=== PATIENT | male | born 1960 | race African-American/Black ===

== ENCOUNTER 2019-04-14 12:27 | Inpatient (IN) | payer OTHER ==
[~2019-04-14] VITALS: Ht 160 cm; Wt 63.0 kg
[2019-04-14] MEDS ORDERED: MORPHINE SULFATE 4 MG/ML SYR/VIAL IV ONE (12:45)
[2019-04-14] MEDS ORDERED: ONDANSETRON HCL 4 MG/2 ML VIAL IV ONE (12:45)
[2019-04-14 13:50] LABS: Basophils # (auto) 0 uL; Basophils % (auto) 0.8 % (0.0-2.0); Eosinophils # (auto) 0.1 uL; Eosinophils % (auto) 2.9 % (0.0-7.0); Hematocrit 45.7 % (41.0-53.0); Hemoglobin 14.2 g/dL (13.5-17.5); Lymphocytes # (auto) 1.2 uL; Lymphocytes % (auto) 29.4 % (10.0-50.0); Mean Corpuscular Hemoglobin 27.5 pg (28.0-32.0); Mean Corpuscular Hgb Conc. 31.1 g/dL (32.0-36.0); Mean Corpuscular Volume 88.5 fL (80.0-100.0); Monocytes # (auto) 0.4 uL; Monocytes % (auto) 10.4 % (0.0-12.0); Neutrophils # (auto) 2.2 uL; Neutrophils % (auto) 56.5 % (37.0-80.0); Nucleated Red Blood Cells % 0.2 %; Platelet Count (auto) 201 10^3/uL (140-450); Red Blood Cells 5.16 10^6/uL (4.5-5.90); Red Cell Distribution Width 14.4 % (11.8-14.3)
[2019-04-14 14:22] LABS: Potassium 4.4 mmol/L (3.5-5.1); Sodium 139 mmol/L (136-145)
[2019-04-14 14:23] LABS: Alanine Aminotransferase 15 U/L (16-61); Albumin 3.3 g/dL (3.4-5.0); Alkaline Phosphatase 63 U/L (45-117); Anion Gap 5 (5-15); Aspartate Aminotransferase 11 U/L (15-37); BUN/Creatinine Ratio 17.1; Bilirubin, Total 0.3 mg/dL (0.2-1.0); Blood Urea Nitrogen 18 mg/dL (7-18); Calcium 8.8 mg/dL (8.5-10.1); Carbon Dioxide 24 mmol/L (21-32); Chloride 110 mmol/L (98-107); GFR African American 93 mL/min; GFR Non-African American 77 mL/min; Glucose 75 mg/dL (74-106)
[2019-04-14] MEDS ORDERED: NITROGLYCERIN 0.4 MG SL TAB SL PRN (16:15)
[2019-04-14] MEDS ORDERED: MORPHINE SULF INJ 2 MG/ML SYRINGE 1ML IV PRN (16:15)
[2019-04-14] MEDS ORDERED: DEXTROSE (50%) 50ML SYRG IV PRN (16:15)
[2019-04-14] MEDS: ACCU-CHEK COMFORT CURVE STRIP VI SCH ×2 (17:50→22:00)
[2019-04-14] MEDS: InsuLIN REG 1unit/0.01ml Soln (100units/ml) SC SCH ×2 (17:55→22:00)
--- NOTE | 2019-04-14 20:10 | NUR ---
Telemetry admit from ER EULOGIO JONES admitted to Telemetry unit after NO SBAR WAS received. Patient oriented to JOSÉ MIGUEL troncoso RN, unit, room, bed, and unit policies regarding patient care and visiting hours. Patient now on continuous telemetry monitoring, tele box # 70 and telemetry reading on arrival to unit is sinus rhythm at 81 bpm. Patient is A/Ox4, skin intact, on RA, ambulatory. Call light is within reach, side rails up x2, bed is in lowest position, side rails up x2, guards are at bedside for safety. Patient weighed by bedscale and encouraged to call if they need something. All questions and concerns addressed, patient verbalized understanding.
[2019-04-14 22:00] VITALS: BP 145/91
--- NOTE | 2019-04-14 22:00 | NUR ---
Patient refused 2200 blood sugar check stating "I am not diabetic. Someone messed up somewhere."
[2019-04-14] MEDS: CARVEDILOL 3.125 MG TAB PO SCH (22:14)
[2019-04-14] MEDS: traMADol HCL 50 MG TAB PO PRN (22:14)
--- NOTE | 2019-04-14 22:30 | NUR ---
MRSA Nares collected and sent to lab via bullet system.
[2019-04-14] MEDS ORDERED: ASPI-404 PO (23:48)
--- NOTE | 2019-04-15 00:48 | NUR ---
Patient now on tele box#8.
[2019-04-15 05:00] VITALS: BP 158/96
[2019-04-15] MEDS: InsuLIN REG 1unit/0.01ml Soln (100units/ml) SC SCH ×4 (06:21→21:35)
[2019-04-15] MEDS: ACCU-CHEK COMFORT CURVE STRIP VI SCH ×4 (06:21→21:35)
--- NOTE | 2019-04-15 08:30 | NUR ---
REFUSAL OF ASSESSMENT PATIENT RESFUSED PHYSICAL ASSESSMENT.
[2019-04-15 09:00] VITALS: BP 154/86
[2019-04-15] MEDS: CARVEDILOL 3.125 MG TAB PO SCH ×2 (10:48→14:45)
[2019-04-15] MEDS: LISINOPRIL 5 MG TAB PO SCH (10:49)
[2019-04-15] MEDS: ENOXAPARIN SOD 40 MG/0.4 ML SYRINGE SC SCH (10:50)
--- NOTE | 2019-04-15 12:11 | NUR ---
PT REFUSED VITALS, STATED THAT HE DIDN'T NEED ANYTHING
--- NOTE | 2019-04-15 14:05 | NUR ---
NOTIFICATION MICROBIOLOGY NOTED PATIENT IS POSITIVE FOR MRSA IN THE NARES. NOTIFIED DR. LOPEZ OF FINDING.
--- NOTE | 2019-04-15 14:50 | NUR ---
PATIENT STATES THAT HE IS HEARING VOICES IN HIS HEAD AND THEY ARE TELLING HIM TO KILL HIMSELF. I ASKED THE PATIENT IF HE HAS HISTORY OF SCHIZOPHRENIA? PATIENT STATES YES AND THAT HE HAS BEEN OFF HIS MEDICATIONS FOR A MONTH. PATIENT HAS TWO GUARDS IN ROOM WHOM HEARD THE PATIENTS STATEMENTS.
--- NOTE | 2019-04-15 19:40 | NUR ---
Opening Shift Note Report received from day shift RN. Assumed care of patient, awake sitting in bed and A&O x4. No S/S of distress/SOB noted at this time. Patient states having tolerable chest pain 4/10 and refused to take any type of medication for his chest pain stating "I do not want to take drugs." Patient educated about medications and chest pain protocols. Patient calm and cooperative at this time and responding appropriately. Guards at bedside. Skin to handcuffed areas intact. Instructed on POC and to call for assist PRN, will continue to monitor for changes Q1hr and PRN.
--- NOTE | 2019-04-15 21:45 | NUR ---
Patient refusing accuchecks. States he does not have DM and does not need his glucose levels monitored.
[2019-04-15] MEDS: MUPIROCIN 2% OINT 15gm or 22gm EACHNOSTRI SCH (21:47)
[2019-04-15 22:00] VITALS: BP 155/92
[2019-04-16 05:02] VITALS: BP 139/87
[2019-04-16] MEDS: InsuLIN REG 1unit/0.01ml Soln (100units/ml) SC SCH ×4 (06:29→22:00)
[2019-04-16] MEDS: ACCU-CHEK COMFORT CURVE STRIP VI SCH ×4 (06:30→22:00)
[2019-04-16 08:14] VITALS: BP 125/96
[2019-04-16] MEDS: ENOXAPARIN SOD 40 MG/0.4 ML SYRINGE SC SCH (09:38)
[2019-04-16] MEDS: LISINOPRIL 5 MG TAB PO SCH (09:41)
[2019-04-16] MEDS: CARVEDILOL 3.125 MG TAB PO SCH ×2 (09:42→22:25)
[2019-04-16] MEDS: MUPIROCIN 2% OINT 15gm or 22gm EACHNOSTRI SCH ×2 (09:43→22:25)
[2019-04-16] MEDS: traMADol HCL 50 MG TAB PO PRN (09:46)
[2019-04-16 13:26] VITALS: BP 133/92
--- NOTE | 2019-04-16 16:02 | NUR ---
[employer] CALLED [email or web address] SPOKE TO [id number], REQUESTED A BROADCAST FIELD SUPERVISOR TO INTERROGATE ICD DEVICE. BROADCAST FIELD SUPERVISOR WILL MAKE CONTACT.
--- NOTE | 2019-04-16 16:14 | NUR ---
[employer] RESPONSE ANTONIO FROM BS, RECOMMENCED TO USE THE LATITUDE INTERROGATOR FROM KEPT IN TH ER TO ANALYIZE THE PATIENTS ICD. WILL FOLLOW UP.
[2019-04-16 17:09] VITALS: BP 120/78
--- NOTE | 2019-04-16 19:20 | NUR ---
OPENING NOTE- NOC SHIFT PATIENT IS IN BED, BED IS LOCKED AT LOWEST POSITION, BED RAILS UP X2 AND HEAD OF BED IS UP >30 DEGREES. PATIENT IS AN INMATE; TWO GUARDS AT BEDSIDE. PATIENT HAS RESTRAINTS TO BILATERAL LOWER EXTREMITIES AND LEFT UPPER EXTREMITY; NO REDNESS OR OPEN SKIN NOTED. KEYS TO SHACKLES ON GUARD; GUARD MADE AWARE TO HAVE KEYS READILY AVAILABLE IN CASE DEFIBRILLATOR WERE TO BE NEEDED. PATIENT IS COMFORTABLE IN BED; DENIES CHEST PAIN AT THIS TIME, DENIES GENERALIZED PAIN. WILL CONTINUE TO MONITOR Q1H AND PRN.
--- NOTE | 2019-04-16 20:05 | NUR ---
[employer] PER DAY SHIFT NURSE RICH RN, AFTER REPORT, DR ALONZO CALL [employer] HIMSELF TO ARRANGE ICD INTERROGATION FOR PATIENT.
[2019-04-16 22:00] VITALS: BP 145/86
--- NOTE | 2019-04-16 22:00 | NUR ---
PATIENT REFUSES ACCU CHECK PATIENT STATES THAT HE DOES NOT NEED ROUTINE ACCU CHECKS AND DOES NOT USE OR HAVE EVER USED INSULIN. EDUCATED PATIENT ON SIGNS AND SYMPTOMS OF HYPERGLYCEMIA AND HYPOGLYCEMIA AND INSTRUCTED PATIENT TO CALL IF ANY OF THESE PRESENTS; PATIENT VERBALIZED UNDERSTANDING.
--- NOTE | 2019-04-17 | NUR ---
ROUNDS PATIENT IS COMFORTABLE IN BED. NO S/SX OF DISTRESS, SOB OR PAIN.
--- NOTE | 2019-04-17 02:05 | NUR ---
PATIENT ASKED FOR COFFEE. EDUCATED PATIENT WITH NO FOOD POLICY BETWEEN MEALS. PATIENT AWARE THAT HE IS ONLY TO HAVE WHAT IS ON HIS TRAY UNLESS MEDICALLY DETERMINED.
--- NOTE | 2019-04-17 03:55 | NUR ---
ROUNDS PATIENT RESTING IN BED COMFORTABLE. NO S/SX OF DISTRESS, SOB OR PAIN. TWO GUARDS AT BEDSIDE.
[2019-04-17 05:00] VITALS: BP 131/82
--- NOTE | 2019-04-17 06:16 | NUR ---
CARDIOLITE STRESS ORDERED FOR 04/18/19 BECAUSE PATIENT HAS HAD COFFEE AND BETABLOCKERS WITHIN THE LAST 24 HOURS. WILL ENDORSE HOLD OF COFFEE AND BETABLOCKERS TO DAY SHIFT NURSE.
--- NOTE | 2019-04-17 07:19 | NUR ---
CLOSING NOTE- NOC SHIFT ENDORSED PATIENT CARE TO DAY SHIFT NURSE GAETANO RN. NO S/SX OF DISTRESS, SOB OR PAIN.
--- NOTE | 2019-04-17 07:45 | NUR ---
Opening Shift Note Assumed care of patient, awake and alert X4. No S/S of distress/SOB or pain. Bed in lowest/locked position, bed rails upx2, call light within reach. Guards at bedside. Instructed on POC and to call for assist PRN. Will continue to monitor for changes Q1hr and PRN.
[2019-04-17] MEDS ORDERED: ADENOSINE 50 MG in GIVE UN-DILUTED 0 ML IV STA (08:31)
[2019-04-17 09:00] VITALS: BP 135/78
--- NOTE | 2019-04-17 09:45 | NUR ---
IV insertion IV access obtained, via clean sterile technique by inserting 20 gauge catheter at RFA after 1 attempt. IV secured properly. No trauma to site. Patient tolerated procedure well.
[2019-04-17] MEDS: ENOXAPARIN SOD 40 MG/0.4 ML SYRINGE SC SCH (09:54)
[2019-04-17] MEDS: CARVEDILOL 3.125 MG TAB PO SCH ×2 (09:54→21:35)
[2019-04-17] MEDS: LISINOPRIL 5 MG TAB PO SCH (09:54)
[2019-04-17] MEDS: MUPIROCIN 2% OINT 15gm or 22gm EACHNOSTRI SCH ×2 (09:54→21:34)
[2019-04-17] MEDS: InsuLIN REG 1unit/0.01ml Soln (100units/ml) SC SCH (11:30)
[2019-04-17] MEDS: ACCU-CHEK COMFORT CURVE STRIP VI SCH (11:30)
[2019-04-17 13:12] VITALS: BP 144/53
[2019-04-17 17:00] VITALS: BP 134/80
[2019-04-17] MEDS: traMADol HCL 50 MG TAB PO PRN (21:35)
[2019-04-17 21:49] VITALS: BP 132/81
--- NOTE | 2019-04-17 23:00 | NUR ---
DR ALONZO AT BEDSIDE.
[2019-04-18 05:00] VITALS: BP 110/69
--- NOTE | 2019-04-18 05:53 | NUR ---
[phone] SPOKE WITH REP REGARDING INTERROGATION OF DEVICE PER ALONZO REQUEST, REP STATES THAT THIS DEVICE IS NOT REGISTERED WITH [facility].
--- NOTE | 2019-04-18 06:01 | NUR ---
[facility] [phone], [facility] SPOKE WITH REP PALACIOS REGARDING REQUEST FOR INTERROGATION OF DEVICE PER DR ALONZO. PHILIP STATES THAT DEVICE IS NOT REGISTERED WITH [facility].
--- NOTE | 2019-04-18 06:05 | NUR ---
[facility] [phone] SPOKE WITH REP CONDE REGARDING INTERROGATION OF DEVICE PER DR ALONZO REQUEST. AMAYA STATES THAT THIS DEVICE IS NOT REGISTERED WITH [facility].
--- NOTE | 2019-04-18 06:09 | NUR ---
DEVICE INTERROGATION WILL ENDORSE TO DAY SHIFT NURSE TO MAKE DR ALONZO AWARE THAT DEVICE WAS NOT FOUND AND TO REQUEST CARD WITH DEVICE ID NUMBER.
--- NOTE | 2019-04-18 07:27 | NUR ---
CLOSING NOTE- NOC SHIFT ENDORSED PATIENT CARE TO DAY SHIFT NURSE TACO RN. PATIENT IS ALERT AND ORIENTED X4. NO S/SX OF DISTRESS OR SOB.
[2019-04-18 09:13] VITALS: BP 121/72
[2019-04-18] MEDS: CARVEDILOL 3.125 MG TAB PO SCH ×2 (09:22→21:56)
[2019-04-18] MEDS: ENOXAPARIN SOD 40 MG/0.4 ML SYRINGE SC SCH (09:24)
[2019-04-18] MEDS: MUPIROCIN 2% OINT 15gm or 22gm EACHNOSTRI SCH ×2 (09:24→21:54)
[2019-04-18] MEDS: LISINOPRIL 5 MG TAB PO SCH (09:24)
[2019-04-18 13:51] VITALS: BP 136/68
[2019-04-18 16:54] VITALS: BP 137/76
--- NOTE | 2019-04-18 19:05 | NUR ---
OPENING NOTE- NOC SHIFT PATIENT IS ALERT AND ORIENTED X4, ANSWERS IN COMPLETE SENTENCES AND MAKES APPROPRIATE EYE CONTACT. PATIENT IS AN INMATE; 2 GUARDS AT BEDSIDE. PATIENT HAS SHACKLES TO BOTH ANKLES AND RIGHT WRIST WHICH ARE ANCHORED TO BED; NO REDNESS OR SKIN IRRITATION NOTED TO RESTRAINED SITES. WILL CONTINUE MONITOR Q1H AND PRN.
[2019-04-18 22:00] VITALS: BP 154/77
[2019-04-19 05:00] VITALS: BP 155/85
[2019-04-19 09:00] VITALS: BP 144/76
[2019-04-19] MEDS: CARVEDILOL 3.125 MG TAB PO SCH (10:08)
[2019-04-19] MEDS: LISINOPRIL 5 MG TAB PO SCH (10:08)
[2019-04-19] MEDS: MUPIROCIN 2% OINT 15gm or 22gm EACHNOSTRI SCH (10:08)
[2019-04-19] MEDS: ENOXAPARIN SOD 40 MG/0.4 ML SYRINGE SC SCH (10:08)
--- NOTE | 2019-04-19 11:10 | NUR ---
DR Sumeet ALONZO AT BEDSIDE, CALL PLACED TO GET PACEMAKER INTERROGATED, STATED THEY WILL BE HERE AROUND NOON.
--- NOTE | 2019-04-19 12:35 | NUR ---
PER PERFECTO FROM [employer], PACEMAKER INTERROGATION COMPLETE. PERFECTO [phone]
[2019-04-19 13:00] VITALS: BP 137/81
[2019-04-19 15:39] VITALS: BP 137/81
--- NOTE | 2019-04-19 16:12 | NUR ---
DISCHARGE INSTRUCTIONS GIVEN TO GUARD. PERIPHERAL IV'S REMOVED, TELE BOX REMOVED AND RETURNED TO TELE ROOM VIA BULLET. PT TO DISCHARGE BACK TO SKILLED NURSING WITH GUARDS IN ATTENDANCE.
== END 2019-04-19 16:15 | DRG 316 ==
LOC: EDBD 12:27 → ER 12:31 → TELE 12:32 → EEVIPCON 12:32 → TELE-E-ADS 20:14 → TELE-EAST 04-15 16:21
PROVIDERS: ADMIT Internal Medicine; ATTEND Internal Medicine
PROC: 4B02XTZ Measurement of Cardiac Defibrillator, External Approach (ICD-10-PCS; principal; 2019-04-18)
DX: I42.0 Dilated cardiomyopathy (principal); I49.9 Cardiac arrhythmia, unspecified; R07.89 Other chest pain; I11.0 Hypertensive heart disease with heart failure; I50.9 Heart failure, unspecified; F20.9 Schizophrenia, unspecified; F32.9 Major depressive disorder, single episode, unspecified; Z95.810 Presence of automatic (implantable) cardiac defibrillator; Z87.891 Personal history of nicotine dependence; Z88.1 Allergy status to other antibiotic agents; Z88.8 Allergy status to other drugs, medicaments and biological substances; Z82.49 Family history of ischemic heart disease and other diseases of the circulatory system
CPT/HCPCS: 36415; 71045; 78452; 80053; 82962; 83880; 84484; 85025; 87081; 93005; 93017; 96374; 96375; G0378; J0153; J2405

== ENCOUNTER 2019-08-30 10:15 | Inpatient (IN) | payer OTHER ==
[~2019-08-30] VITALS: Ht 160 cm; Wt 63.1 kg
[~2019-08-30 10:15] MED LIST: ASPI-543 PO
[2019-08-30] MEDS ORDERED: MORPHINE SULFATE 4 MG/ML SYR/VIAL IV ONE (11:00)
[2019-08-30] MEDS ORDERED: ONDANSETRON HCL 4 MG/2 ML VIAL IV ONE (11:00)
[2019-08-30 13:46] LABS: Basophils # (auto) 0 10 ^3/uL (0-0.2); Basophils % (auto) 0.7 % (0.0-2.0); Eosinophils # (auto) 0.1 10 ^3/uL (0-0.8); Eosinophils % (auto) 2.9 % (0.0-7.0); Hematocrit 43.9 % (41.0-53.0); Hemoglobin 13.8 g/dL (13.5-17.5); Lymphocytes # (auto) 0.9 10 ^3/uL (0.4-5.4); Lymphocytes % (auto) 32.8 % (10.0-50.0); Mean Corpuscular Hemoglobin 27.8 pg (28.0-32.0); Mean Corpuscular Hgb Conc. 31.5 g/dL (32.0-36.0); Mean Corpuscular Volume 88.1 fL (80.0-100.0); Monocytes # (auto) 0.3 10 ^3/uL (0-1.3); Monocytes % (auto) 11.7 % (0.0-12.0); Neutrophils # (auto) 1.4 10 ^3/uL (1.6-8.6); Neutrophils % (auto) 51.9 % (37.0-80.0); Nucleated Red Blood Cells % 0.3 %; Platelet Count (auto) 182 10^3/uL (140-450); Red Blood Cells 4.98 10^6/uL (4.5-5.90); White Blood Cell 2.7 10^3/uL (4.4-10.8)
[2019-08-30 14:03] LABS: INR 1.09 (0.9-1.15); Partial Thromboplastin Time 31.2 sec (23.64-32.05)
[2019-08-30 14:06] LABS: Albumin 3.5 g/dL (3.4-5.0); Calcium 8.6 mg/dL (8.5-10.1); Potassium 4.3 mmol/L (3.5-5.1)
[2019-08-30 14:13] LABS: Bilirubin, Total 0.5 mg/dL (0.2-1.0)
[2019-08-30] MEDS ORDERED: PANTOPRAZOLE 40 MG TAB PO SCH (21:00)
[2019-08-30] MEDS ORDERED: NITROGLYCERIN 0.4 MG SL TAB SL PRN (21:00)
[2019-08-30] MEDS ORDERED: PANTOPRAZOLE 40 MG TAB PO ONE (21:15)
[2019-08-30] MEDS ORDERED: MORPHINE SULF INJ 2 MG/ML SYRINGE 1ML IV PRN (22:00)
[2019-08-30 22:28] VITALS: BP 154/87
[2019-08-30 23:00] VITALS: BP 154/87
--- NOTE | 2019-08-31 01:08 | NUR ---
2300. 7.8.20. PATIENT ADMITTED FROM ER. WAS AWAKE ALERT AND ORIENTED. COMPLAINED OF MILD CHEST PAIN. HAS A PACE MAKER LEFT ANTERIOR UPPER CHEST. HAS BEEN SEEN BY DR ALONZO. STATED A SCAN WILL BE DONE IN THE MORNING.
--- NOTE | 2019-08-31 01:10 | NUR ---
NASAL SWAB COLLECTED FROM BOTH NARS FOR MRSA SCREEN. SAME SENT TO LAB.
--- NOTE | 2019-08-31 05:41 | NUR ---
0330: PATIENT CALLED AND SHOWED ME 750ML OF CLEAR URINE HE HAD VOIDED BUT COMPLAINED HE HAD TO STRAIN TO PASS OUT THAT VOLUME OF URINE. HE SAID IT WAS DUE TO HIS ENLARGED PROSTATE. HE REQUESTED A SHIELDS CATHETER INSERTED. I EXPLAINED THAT HE MAY NEED TO SEE A UROLOGIST IN THE MORNING TO EVALUATE HIS COMPLAINT AND MAKE A DECISION ABOUT PROSTATE ESPECIALLY HE IS STILL ABLE TO VOID. HE NOW ASKED IF HE CAN HAVE PAIN MEDICATION TO REDUCE THE DISCOMFORT WHEN VOIDING. I OFFERED MORPHINE WHICH HE AGREED. GETTING TO THE BEDSIDE WITH MORPHINE HE SAID HE HAD CHANGED HIS MIND. AND TJHAT HE WAS TESTING MY PREPAREDNESS TO HELP HIM. MORPHINE WAS RETURNED. I TOLD HIM I SHALL MAKE A NOTE OF THIS INCIDENT SO THAT A UROLOGIST WILL SEE HIM SOONEST. HE ACCEPTED AND WENT TO SLEEP.
[2019-08-31 06:26] VITALS: BP 153/84
--- NOTE | 2019-08-31 08:26 | NUR ---
OPENING SHIFT NOTE Assumed care of patient. PT is awake and alert x4. No S/S of distress/SOB or pain. Guards at bedside. Instructed on POC and to call for assist PRN. Bed in lowest locked position, call light within reach, side rails up x2, fall precautions in place. Will continue to monitor for changes Q1hr and PRN.
[2019-08-31 08:46] VITALS: BP 152/91
[2019-08-31] MEDS ORDERED: LISINOPRIL 5 MG TAB PO ONE (10:00)
[2019-08-31] MEDS ORDERED: METOPROLOL TARTRATE 25 MG TAB PO ONE (10:00)
[2019-08-31] MEDS ORDERED: ENOXAPARIN SOD 40 MG/0.4 ML SYRINGE SC ONE (10:00)
--- NOTE | 2019-08-31 10:53 | NUR ---
CALLED [facility]. STATED REP WOULD BE IN TO SEE PT TODAY 08/30 OR TOMORROW 08/31.
--- NOTE | 2019-08-31 10:55 | NUR ---
PT C/O STRAINING WHILE URINATING AND CLAIMS HX OF ENLARGED PROSTATE. PT IS REQUESTING SHIELDS TO BE PALCED. PAGED . AWAITING CALL BACK.
[2019-08-31 13:00] VITALS: BP 151/70
--- NOTE | 2019-08-31 14:19 | NUR ---
SECOND CALL TO DR LOPEZ. AWAITING CALLBACK.
[2019-08-31 16:43] VITALS: BP 148/81
--- NOTE | 2019-08-31 18:45 | NUR ---
DR LOPEZ IN TO SEE PT DURING SHIFT CHANGE. ORDERED STRAIGHT CATH TO BE PERFORMED ON PT. WILL ENDORSE TO NIGHT NURSE.
[2019-08-31 22:00] VITALS: BP 153/89
--- NOTE | 2019-09-01 00:25 | NUR ---
PATIENT HAS REMAINED CALM COOPERATIVE AND PAIN FREE. HE HAS BEEN ABLE TO VOID TWICE WITHOUT COMPLAINING.
[2019-09-01 05:00] VITALS: BP 154/96
--- NOTE | 2019-09-01 05:38 | NUR ---
0520: STRAIGHT URETHRAL CATHETERIZATION DONE. 280 MLS OF CLEAR URINE OUT. PATIENT TOLERATED THE PROCEDURE AND VERBALIZED INCREASED RELIEF AND COMFORT.
--- NOTE | 2019-09-01 07:15 | NUR ---
Opening shift note Patient in bed AOx4 no s/s of distress noted at this time. Patient denies pain. Updated on POC and to call for assistance as needed, will continue care.
[2019-09-01 09:07] VITALS: BP 156/88
[2019-09-01] MEDS ORDERED: ENOXAPARIN SOD 40 MG/0.4 ML SYRINGE SC SCH (10:00)
[2019-09-01 12:34] VITALS: BP 161/76
--- NOTE | 2019-09-01 14:03 | NUR ---
Pacemaker checked by [facility] Pacemaker checked no abnormal findings reported by [facility] staging technician, will inform Dr. Jeannette Lara.
--- NOTE | 2019-09-01 15:00 | NUR ---
paged Dr. Rodriguez paged regarding patient having difficulty to urinate. Patient reports he has to strain to release urine. Patient refusing straight catheter at this time as patient states that is only a short relief and not targeting the issue. Awaiting call back.
[2019-09-01 16:53] VITALS: BP 137/72
[2019-09-01] MEDS ORDERED: METO-169 PO (17:07)
[2019-09-01] MEDS ORDERED: TAM04C PO (17:07)
[2019-09-01 17:57] VITALS: BP 156/88
[2019-09-01] MEDS ORDERED: TAMSULOSIN HYDROCHLORIDE 0.4 MG CAP PO SCH (18:00)
--- NOTE | 2019-09-01 19:30 | NUR ---
Closing shift note Patient comfortably in bed, no s/s of distress noted at this time. Pending discharge, discharge packet ready. Endorsed D/C education, IV removal, telemetry box removal, and D/C MRSA swab to NOC DMITRY Jameson.
--- NOTE | 2019-09-01 20:58 | NUR ---
PATIENT DISCHARGE INSTRUCTIONS HAVE BEEN DISCUSSED WITH HIM IN THE PRESENCE OF TWO SKILLED NURSING GUARDS. HE VERBALIZED UNDERSTANDING AND SIGNED HIS PAPERS ACCORDINGLY. HIS RIGHT UPPER ARM MIDLINE IV ACCESS WAS DISCONTINUED AND A FIRM GAUZE DRESSING APPLIED. A PERIPHERAL IV LINE ON THE LEFT UPPER ARM WAS DISCONTINUED AND A FIRM DRESSING APPLIED. ALL HIS DISCHARGE PAPPERS WERE COLLECTED BY THE SKILLED NURSING GUARDS ON HIS BEHALF. HE IS NOW WAITING FOR HIS TRANSPORT BACK TO WHERE HE CAME FROM..
== END 2019-09-01 21:30 | DRG 312 ==
LOC: EDBD 10:15 → ER 10:15 → EEVIPCON 10:15 → TELE 10:16 → TELE-WESTW 22:03
PROVIDERS: ADMIT Internal Medicine; ATTEND Internal Medicine
DX: R55 Syncope and collapse (principal); I42.9 Cardiomyopathy, unspecified; R07.9 Chest pain, unspecified; I50.9 Heart failure, unspecified; I11.0 Hypertensive heart disease with heart failure; N40.0 Benign prostatic hyperplasia without lower urinary tract symptoms; F17.200 Nicotine dependence, unspecified, uncomplicated; F32.9 Major depressive disorder, single episode, unspecified; F20.9 Schizophrenia, unspecified; Z88.8 Allergy status to other drugs, medicaments and biological substances; Z95.810 Presence of automatic (implantable) cardiac defibrillator; Z79.82 Long term (current) use of aspirin; Z82.49 Family history of ischemic heart disease and other diseases of the circulatory system
CPT/HCPCS: 36415; 71045; 80053; 84484; 85025; 85610; 85730; 87081; 93005; 99291; G0378; J2405